=== PATIENT | female | born 1965 | race Caucasian/White ===

== ENCOUNTER 2017-04-04 12:03 | Emergency (ER) | payer MEDICAID ==
--- NOTE | 2017-04-05 08:46 | ER ---
ADMIT: 04/04/2017 RM/LOC: ER [facility] MR#: [id number] [id number] [id number] [address] [address] Emergency Room Report SEX: F AGE: 51 : 1965 DATE: 04/04/2017 This 51-year-old female brought to the ER for alf clearance. She apparently is homeless, [place]. See T sheet for history and physical. The patient complains of pain everywhere and thinks she is in family way. When I asked which area hurt in particular, she said had her whole body and demanded a whole body x-ray. She is medically cleared for alf. Vineet Dupont MD/ alesia JOB #: [id number] CC: Vineet Dupont MD, Attending Physician
== END 2017-04-04 12:15 | disposition home or self-care (01) ==
LOC: ER 12:03
DX: Z02.89 Encounter for other administrative examinations (principal); F17.200 Nicotine dependence, unspecified, uncomplicated; R52 Pain, unspecified; Z59.0 Homelessness

== ENCOUNTER 2017-04-17 13:53 | Emergency (ER) | payer MEDICAID ==
--- NOTE | 2017-04-22 23:43 | ER ---
ADMIT: 04/17/2017 RM/LOC: ER [facility] MR#: [id number] [facility] [address] [place], [place] [id number] [address] [place] [facility] [place] [address] Emergency Room Report SEX: F AGE: 51 : 1965 DATE: 04/17/2017 TIME: 1353 hours. Please refer to my T-sheet for complete H and P. Briefly, the patient comes in with sore throat. She has had it for a long time. She has been in and out of here, has a psychiatric history. She does smoke. She also has poor dentition. 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 She has multiple psychiatric problems. PHYSICAL EXAMINATION: VITAL SIGNS: Here are stable. She is afebrile. HEENT: Very poor dentition throughout. No obvious abscess to drain but multiple caries. Throat is slightly erythematous. NECK: Soft, supple. No meningismus. No adenopathy. LUNGS: Clear. ABDOMEN: Soft. EMERGENCY DEPARTMENT COURSE: Uneventful. ASSESSMENT: 1. Dental caries. 2. Sore throat. 3. Nicotine abuse. PLAN: Stop smoking. Amoxil 500 t.i.d. for 10 days. I talked about Listerine, brushing her teeth, following up with a dentist. Return if worse. Mike Adair MD/ alesia JOB #: [id number] CC: Mike Adair MD, Attending Physician
== END 2017-04-17 14:45 | disposition home or self-care (01) ==
LOC: ER 13:53
DX: J02.9 Acute pharyngitis, unspecified (principal); K02.9 Dental caries, unspecified; F17.210 Nicotine dependence, cigarettes, uncomplicated; Z90.89 Acquired absence of other organs

== ENCOUNTER 2017-04-28 14:31 | Emergency (ER) | payer MEDICAID | END 2017-04-28 14:50 | disposition left against medical advice (07) | LOC: ER 14:31 | DX: Z53.21 Procedure and treatment not carried out due to patient leaving prior to being seen by health care provider (principal) ==